=== PATIENT | female | born 1950 | race Caucasian/White ===

== ENCOUNTER → 2016-04-13 | Outpatient (CLI) | payer BC | LOC: MC.RAD 09:40 | DX: Z12.31 Encounter for screening mammogram for malignant neoplasm of breast (principal); N63 Unspecified lump in breast; Z80.3 Family history of malignant neoplasm of breast ==

== ENCOUNTER → 2016-04-23 | Outpatient (CLI) | payer BC | LOC: MC.RAD 07:30 | DX: D48.62 Neoplasm of uncertain behavior of left breast (principal); Z80.3 Family history of malignant neoplasm of breast ==

== ENCOUNTER → 2016-04-24 | Outpatient (CLI) | payer BC | LOC: MC.RAD 07:48 | DX: N63 Unspecified lump in breast (principal); D24.2 Benign neoplasm of left breast | CPT/HCPCS: 30634 ==

== ENCOUNTER → 2016-11-01 | Outpatient (CLI) | payer BC | LOC: MC.RAD 10:52 | DX: N63 Unspecified lump in breast (principal); R92.8 Other abnormal and inconclusive findings on diagnostic imaging of breast; Z98.890 Other specified postprocedural states ==

== ENCOUNTER → 2017-06-27 | Outpatient (CLI) | payer BC | LOC: MC.RAD 08:19 | DX: Z12.31 Encounter for screening mammogram for malignant neoplasm of breast (principal) ==

== ENCOUNTER 2019-01-06 07:00 | Day surgery (SDC) | payer MEDICARE, OTHER ==
[~2019-01-06] VITALS: Ht 157.5 cm; Wt 85.4 kg
[2019-01-06 07:26] VITALS: BP 122/70; PULSE 70; TEMP 97.8
[2019-01-06] MEDS ORDERED: ZESTRIL 20MG TA20 MG PO (07:37)
[2019-01-06] MEDS ORDERED: ZOCOR 20MG20 MG PO (07:37)
[2019-01-06] MEDS ORDERED: MULTI VITAMINS1 TAB PO (07:38)
[2019-01-06] MEDS ORDERED: VITAMINE200 PO (07:39)
[2019-01-06] MEDS ORDERED: ASPIRIN E.C. 8181 MG PO (07:39)
[2019-01-06] MEDS ORDERED: OSCAL 500 TAB500 MG PO (07:41)
--- NOTE | 2019-01-06 07:44 | NUR ---
TO RM 1 CALL LIGHT IN REACH
[2019-01-06 09:05] VITALS: BP 114/68; PULSE 68; TEMP 98.3
--- NOTE | 2019-01-06 09:05 | NUR ---
Patient arrives back to [facility] drowsy. Patient ambulates from cart to chair with standby assist and without any complications. Patient monitor applied, vitals stable. Patient's spouse at bedside.
--- NOTE | 2019-01-06 09:15 | NUR ---
Patient given orange juice and muffin at this time.
[2019-01-06 09:20] VITALS: BP 126/75; PULSE 68
--- NOTE | 2019-01-06 09:30 | NUR ---
Dr Garcia into see patient and spouse to go over results at this time.
[2019-01-06 09:35] VITALS: BP 113/67; PULSE 60
--- NOTE | 2019-01-06 09:40 | NUR ---
Dismissal instructions gone over with patient and patient's spouse. Both verbalize understanding and all questions answered.
--- NOTE | 2019-01-06 09:50 | NUR ---
Patient dismissed to patient enterance via wheelchair to private vehicle without any complications. Patient and spouse leave thanking staff for services.
[2019-01-06 10:53] VITALS: BP 104/65; PULSE 64
== END 2019-01-06 09:50 | disposition home or self-care (01) ==
LOC: SDCO 07:00
DX: Z12.11 Encounter for screening for malignant neoplasm of colon (principal); K57.30 Diverticulosis of large intestine without perforation or abscess without bleeding; I10 Essential (primary) hypertension; E78.5 Hyperlipidemia, unspecified; Z79.899 Other long term (current) drug therapy; Z79.82 Long term (current) use of aspirin; Z88.0 Allergy status to penicillin
CPT/HCPCS: J2250; J2405; J3010; J7030

== ENCOUNTER → 2019-01-30 | Outpatient (CLI) | payer MEDICARE, OTHER ==
[~2019-01-30] MED LIST: ASPIRIN E.C. 8181 MG PO; MULTI VITAMINS1 TAB PO; OSCAL 500 TAB500 MG PO; VITAMINE200 PO; ZESTRIL 20MG TA20 MG PO; ZOCOR 20MG20 MG PO
== END ==
LOC: MC.RAD 13:10
DX: Z12.31 Encounter for screening mammogram for malignant neoplasm of breast (principal)

== ENCOUNTER → 2020-03-04 | Outpatient (CLI) | payer MEDICARE, OTHER | LOC: MC.RAD 13:16 | DX: Z12.31 Encounter for screening mammogram for malignant neoplasm of breast (principal); N64.89 Other specified disorders of breast ==

== ENCOUNTER → 2020-03-11 | Outpatient (CLI) | payer MEDICARE | LOC: MC.RAD 03-10 07:00 | DX: N60.12 Diffuse cystic mastopathy of left breast (principal); N64.89 Other specified disorders of breast ==

== ENCOUNTER → 2021-04-13 | Outpatient (CLI) | payer MEDICARE, OTHER | LOC: MC.RAD 09:02 | DX: Z12.31 Encounter for screening mammogram for malignant neoplasm of breast (principal); N63.21 Unspecified lump in the left breast, upper outer quadrant ==

== ENCOUNTER → 2021-04-18 | Outpatient (CLI) | payer MEDICARE, OTHER | LOC: MC.RAD 08:52 | DX: N60.02 Solitary cyst of left breast (principal) ==

== ENCOUNTER → 2022-06-14 | Outpatient (CLI) | payer MEDICARE, OTHER | LOC: MC.RAD 10:22 | DX: Z12.31 Encounter for screening mammogram for malignant neoplasm of breast (principal); R92.1 Mammographic calcification found on diagnostic imaging of breast ==

== ENCOUNTER → 2023-10-02 | Outpatient (CLI) | payer MEDICARE | LOC: MC.RAD 13:20 | DX: Z12.31 Encounter for screening mammogram for malignant neoplasm of breast (principal) ==